=== PATIENT | male | born 1965 | race African-American/Black ===

== ENCOUNTER 2017-03-21 17:36 | Inpatient (IN) | payer OTHER, MEDICARE ==
[2017-03-21] MEDS: ASPIRIN CHEWABLE 81 MG TABLET. PO (17:45)
[2017-03-21 18:28] LABS: ADD MAN DIFF? NO
[2017-03-21 18:33] LABS: BASO % 1 % (0-3); EOS % 1 % (0-3); HEMOGLOBIN 15.7 g/dL (13.0-17.5); LYMPH # 1.8 x10^3/uL (1.0-4.8); LYMPH % 52 % (24-48); MEAN CORPUSCULAR HEMOGLOBIN 29 pg (25-35); MEAN CORPUSCULAR HGB CONC 33 g/dL (31-37); MEAN CORPUSCULAR VOLUME 85 fL (79-100); MONO # 0.3 x10^3/uL (0.0-1.1); MONO % 8 % (0-9); NEUT # 1.4 x10^3uL (1.8-7.7); NEUT % 39 % (31-73); PLATELET COUNT 312 x10^3/uL (140-400); RED CELL DISTRIBUTION WIDTH 16.5 % (11.5-14.5); WHITE BLOOD COUNT 3.6 x10^3/uL (4.0-11.0)
[2017-03-21 18:54] LABS: ANION GAP 10 (6-14); BLOOD UREA NITROGEN 13 mg/dL (8-26); BUN/CREATININE RATIO 11 (6-20); CARBON DIOXIDE 28 mmol/L (21-32); CHLORIDE 105 mmol/L (98-107); CREATININE 1.2 mg/dL (0.7-1.3); GFR 76.6; GLUCOSE 106 mg/dL (70-99); POTASSIUM 4.2 mmol/L (3.5-5.1); SODIUM 143 mmol/L (136-145)
[2017-03-21 19:07] LABS: ALBUMIN 3.9 g/dL (3.4-5.0); ALBUMIN/GLOBULIN RATIO 0.8 (1.0-1.7); ALK PHOS 60 U/L (46-116); ALT (SGPT) 24 U/L (16-63); AST (SGOT) 26 U/L (15-37); TOTAL BILIRUBIN 0.4 mg/dL (0.2-1.0); TOTAL PROTEIN 8.8 g/dL (6.4-8.2)
[2017-03-21 19:14] LABS: TROPONINI < 0.017 ng/mL (0.000-0.055)
[2017-03-21] MEDS ORDERED: NITROGLYCERIN SUBLINGUAL 0.4 MG BOTTLE OF 25. SL (19:30)
[2017-03-21] MEDS ORDERED: MORPHINE SULFATE 2 MG/ML DISP.SYRIN. IV (19:30)
[2017-03-21] MEDS ORDERED: ONDANSETRON PF 4 MG/2 ML VIAL. IV (19:30)
[2017-03-21] MEDS ORDERED: ACETAMINOPHEN 325 MG TABLET. PO (19:30)
[2017-03-22 01:54] LABS: TROPONINI < 0.017 ng/mL (0.000-0.055)
[2017-03-22] MEDS: FAMOTIDINE 20 MG TABLET. PO ×2 (05:17→09:06)
[2017-03-22] MEDS: IBUPROFEN 800 MG TABLET. PO ×3 (05:17→09:06)
[2017-03-22 07:53] LABS: TROPONINI < 0.017 ng/mL (0.000-0.055)
[2017-03-22 09:33] LABS: CHOLESTEROL 202 mg/dL (0-200); HDLC 84 mg/dL (40-60); LDLC 101 mg/dL (0-100); NON-HDL CHOLESTEROL 118 mg/dL (0-129); TRIGLYCERIDES 87 mg/dL (0-150); VLDLC 17 mg/dL (0-40)
[2017-03-22 09:34] LABS: CHOLESTEROL/HDL RATIO 2.4
[2017-03-22] MEDS: LOSARTAN POTASSIUM 50 MG TABLET. PO (11:07)
[2017-03-22] MEDS: hydroCHLOROthiazide 12.5 MG CAPSULE PO (11:07)
[2017-03-22] MEDS: oxyCODONE IR 5 MG TABLET PO (11:07)
== END 2017-03-22 17:15 | disposition home or self-care (01) | DRG 313 ==
LOC: ER 17:36 → 2 NORTH 18:30
DX: R07.89 Other chest pain (principal); F10.129 Alcohol abuse with intoxication, unspecified; F12.90 Cannabis use, unspecified, uncomplicated; F17.210 Nicotine dependence, cigarettes, uncomplicated; I10 Essential (primary) hypertension; K21.9 Gastro-esophageal reflux disease without esophagitis; V89.2XXA Person injured in unspecified motor-vehicle accident, traffic, initial encounter; Y93.89 Activity, other specified; Y92.488 Other paved roadways as the place of occurrence of the external cause; Y99.8 Other external cause status; Z82.49 Family history of ischemic heart disease and other diseases of the circulatory system; Z88.8 Allergy status to other drugs, medicaments and biological substances
CPT/HCPCS: 36415; 71045; 71110; 80053; 80061; 84484; 85025; 93005; 93306; 99285; 99285-25

== ENCOUNTER 2021-06-05 06:47 | Emergency (ER) | payer OTHER ==
[~2021-06-05] VITALS: Ht 170.2 cm; Wt 83.6 kg
[~2021-06-05 06:47] MED LIST: IBUP-1027 PO; LOSA1TAB19 PO
[2021-06-05] MEDS ORDERED: IV RINGERS,LACTATED 500ML 500 ML IV ONE (07:30)
[2021-06-05] MEDS ORDERED: KETOROLAC 15 MG/ML VIAL. IVP ONE (07:45)
--- NOTE | 2021-06-05 07:55 | ED.ADGEN ---
Past Medical History Past Medical History: Hypertension Past Surgical History: Other Additional Past Surgical Histo: plastic surgery for wound repair Smoking Status: Current Every Day Smoker Alcohol Use: Heavy Drug Use: Marijuana General Adult EDM: Chief Complaint: RIB PAIN HPI: HPI: Patient is a 55 year old male coming in via EMS for left flank and rib pain. Patient was moving self in a garage after having been up doing crack cocaine last night and fell onto the floor. Patient's complaining of pain mostly in his left ribs. Denies any head injury loss conscious. Denies any bleeding Review of Systems: Review of Systems: All other systems within normal limits except for as noted in the HPI Current Medications: Current Medications Medications (Trade) Dose Ordered Sig/Mahad Start Time Stop Time Status Last Admin Dose Admin Ketorolac Tromethamine (Toradol 15mg Vial) 15 mg 1X ONCE 06/05/21 07:45 06/05/21 07:46 DC 06/05/21 07:55 15 MG Ringer's Solution 1,000 ml @ 75 mls/hr 1X ONCE 06/05/21 08:15 06/05/21 21:34 06/05/21 07:50 75 MLS/HR Allergies: Allergies: Allergies Coded Allergies Type Severity Reaction Last Updated Verified lisinopril Allergy Severe swelling 05/30/13 Yes Physical Exam: PE: Constitutional: Well developed, well nourished, no acute distress, non-toxic appearance. [] HENT: Normocephalic, atraumatic, bilateral external ears normal, nose normal. [ ] Eyes: PERRLA, conjunctiva normal, no discharge. [] Neck: No rigidity, supple, no stridor. [] Cardiovascular: Regular rate and rhythm, brisk cap refill [] Lungs & Thorax: Non labored symmetric respirations, no tachypnea or respiratory distress. Left chest wall [] Abdomen: Soft, nondistended, generalized abdominal Skin: Warm, dry, no erythema, no rash. [] Back: Unremarkable Extremities: No deformities, range of motion grossly intact, no lower extremity edema [] Neurologic: Alert and oriented X 3, no focal deficits noted. [] Psychologic: Affect normal, judgement normal, mood normal. [] Current Patient Data: Labs: Laboratory Tests Test 06/05/21 07:22 06/05/21 07:50 06/05/21 08:18 Urine Collection Type Unknown Urine Color (Auto) Colorless Urine Turbidity Clear Urine pH (Auto) 7.0 (<5.0-8.0) Urine Specific [place] 1.011 (1.000-1.030) Urine Protein (Auto) Negative mg/dL (Negative) Urine Glucose (Auto)(UA) Negative mg/dL (Negative) Urine Ketones (Auto) Negative mg/dL (Negative) Urine Blood (Auto) Negative (Negative) Urine Nitrite Negative (Negative) Urine Bilirubin (Auto) Negative (Negative) Urine Urobilinogen (Auto) Normal mg/dL (Normal) Urine Leukocyte Esterase (Auto) Negative (Negative) Urine RBC 0 /HPF (0-2) Urine WBC 0 /HPF (0-4) Urine Bacteria 0 /HPF (0-FEW) White Blood Count 4.2 x10^3/uL (4.0-11.0) Red Blood Count 4.73 x10^6/uL (4.30-5.70) Hemoglobin 13.6 g/dL (13.0-17.5) Hematocrit 40.5 % (39.0-53.0) Mean Corpuscular Volume 86 fL (79-100) Mean Corpuscular Hemoglobin 29 pg (25-35) Mean Corpuscular Hemoglobin Concent 34 g/dL (31-37) Red Cell Distribution Width 16.2 % (11.5-14.5) H Platelet Count 292 x10^3/uL (140-400) Neutrophils (%) (Auto) 52 % (31-73) Lymphocytes (%) (Auto) 30 % (24-48) Monocytes (%) (Auto) 11 % (0-9) H Eosinophils (%) (Auto) 7 % (0-3) H Basophils (%) (Auto) 1 % (0-3) Neutrophils # (Auto) 2.2 x10^3/uL (1.8-7.7) Lymphocytes # (Auto) 1.3 x10^3/uL (1.0-4.8) Monocytes # (Auto) 0.4 x10^3/uL (0.0-1.1) Eosinophils # (Auto) 0.3 x10^3/uL (0.0-0.7) Basophils # (Auto) 0.0 x10^3/uL (0.0-0.2) Sodium Level 141 mmol/L (136-145) Potassium Level 4.2 mmol/L (3.5-5.1) Chloride Level 107 mmol/L (98-107) Carbon Dioxide Level 24 mmol/L (21-32) Anion Gap 10 (6-14) Blood Urea Nitrogen 14 mg/dL (8-26) Creatinine 1.0 mg/dL (0.7-1.3) Estimated GFR (Cockcroft-Gault) 93.2 BUN/Creatinine Ratio 14 (6-20) Glucose Level 92 mg/dL (70-99) Calcium Level 8.9 mg/dL (8.5-10.1) Total Bilirubin 0.3 mg/dL (0.2-1.0) Aspartate Amino Transferase (AST) 19 U/L (15-37) Alanine Aminotransferase (ALT) 21 U/L (16-63) Alkaline Phosphatase 61 U/L (46-116) Total Protein 7.2 g/dL (6.4-8.2) Albumin 3.5 g/dL (3.4-5.0) Albumin/Globulin Ratio 0.9 (1.0-1.7) L Lipase 140 U/L (73-393) Ethyl Alcohol Level 46 mg/dL (0-10) H Urine Opiates Screen Neg (NEG) Urine Methadone Screen Neg (NEG) Urine Barbiturates Neg (NEG) Urine Phencyclidine Screen Pos (NEG) Urine Amphetamine/Methamphetamine Neg (NEG) Urine Benzodiazepines Screen Neg (NEG) Urine Cocaine Screen Pos (NEG) Urine Cannabinoids Screen Neg (NEG) Urine Ethyl Alcohol Pos (NEG) Laboratory Tests 06/05/21 07:50 Laboratory Tests 06/05/21 07:50 Vital Signs: Vital Signs Date Time Temp Pulse Resp B/P (MAP) Pulse Ox O2 Delivery O2 Flow Rate FiO2 06/05/21 06:55 98.9 73 16 158/62 (94) 98 98.9 EKG: EKG: [] Heart Score: C/O Chest Pain: No Risk Factors: Risk Factors: DM, Current or recent (<one month) smoker, HTN, HLP, family history of CAD, obesity. Risk Scores: Score 0 - 3: 2.5% MACE over next 6 weeks - Discharge Home Score 4 - 6: 20.3% MACE over next 6 weeks - Admit for Clinical Observation Score 7 - 10: 72.7% MACE over next 6 weeks - Early Invasive Strategies Radiology/Procedures: Radiology/Procedures: [][facility] [address] [place] [address] IMAGING REPORT Signed PATIENT: AFIA MARTINEZ ACCOUNT: [id number] : 1965 LOCATION: ER AGE: 55 SEX: M EXAM STATUS: PRE ER ORD. PHYSICIAN: OVIDIO ANGELES MD REASON: fall, left flank and abd pain PROCEDURE: CT HEAD AND CERVICAL SPINE WO PQRS Compliance Statement: One or more of the following individualized dose reduction techniques were utilized for this examination: 1. Automated exposure control 2. Adjustment of the mA and/or kV according to patient size 3. Use of iterative reconstruction technique CT HEAD AND CERVICAL SPINE WITHOUT CONTRAST History: Reason: fall, left flank and abd pain / Spl. Instructions: / History: Comparison: CT head and cervical spine without contrast July 27, 2012. Procedure: Axial images are obtained of the head from the skull base through the vertex without IV contrast. Noncontrast helical CT of the cervical spine was performed. Axial, sagittal, and coronal reconstructions were obtained. Findings: The ventricles and sulci are prominent, consistent with generalized cerebral atrophy. There is mild periventricular white matter hypoattenuation. This is a nonspecific finding but is commonly due to chronic small vessel ischemic disease in a patient of this age. No mass-effect, midline shift, hemorrhage or obvious acute infarction is identified. Basilar cisterns are patent. Bone windows demonstrate no significant calvarial abnormality. There is mucosal thickening of the bilateral ethmoid and maxillary sinuses. There is no air-fluid level. Mastoid air cells are well aerated. There is no evidence of acute fracture or acute malalignment of the cervical spine. The facet joints are hypertrophic. There is mild grade 1 anterolisthesis of C4 on C5 and C7 on T1. The alignment is otherwise maintained. There is disc space narrowing and reactive endplate changes of C5/C6 and C6/C7 and C7/T1. There is neural foraminal narrowing of C5/C6 and C6/C7 mainly due to uncinate process hypertrophy. The thyroid gland is prominent. The visualized lung apices are clear. IMPRESSION: 1. No acute intracranial abnormality. 2. No acute fracture of the cervical spine. Electronically signed by: Og Lynne MD (06/05/2021 8:38 AM) [id number] DICTATED and SIGNED BY: OG LYNNE MD DATE: 06/05/21829 [facility] [address] [place] [address] IMAGING REPORT Signed PATIENT: AFIA MARTINEZ ACCOUNT: [id number] : 1965 LOCATION: ER AGE: 55 SEX: M EXAM STATUS: REG ER ORD. PHYSICIAN: OVIDIO ANGELES MD REASON: fall, left flank and abd pain PROCEDURE: CT CHEST ABDOMEN PELVIS WO PQRS Compliance Statement: One or more of the following individualized dose reduction techniques were utilized for this examination: 1. Automated exposure control 2. Adjustment of the mA and/or kV according to patient size 3. Use of iterative reconstruction technique CT CHEST_ABDOMEN_ AND PELVIS WITHOUT CONTRAST Clinical Indication: Reason: fall, left flank and abd pain / Spl. Instructions: / History: Comparison: None. Technique: Helical CT imaging of the chest, abdomen and pelvis is performed without IV or oral contrast. Findings: In the setting of trauma, sensitivity for detection of pathology is significantly decreased without IV contrast. No acute mediastinal hematoma is identified. 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 There is coronary artery disease. The cardiac size is normal, no pericardial effusion. There is small hiatal hernia. There is no pneumothorax. There is bilateral dependent atelectasis, greater on the left. The central airways are patent. There is no acute traumatic solid organ injury in the upper abdomen. Small left parapelvic cyst does not require follow-up. There is no hydronephrosis. There is no intraperitoneal free air or free fluid. No acute injury of bowel is seen. There is no obstruction. The urinary bladder is intact. There are multiple old left lateral rib fractures. The thoracic spine alignment is maintained. There is grade 1 anterolisthesis of L4 on L5. There is disc space narrowing and vacuum disc phenomenon of L4/L5. There are reactive endplate changes of L5/S1. No acute pelvic fracture. No acute fracture of the thoracolumbar spine is seen. IMPRESSION: 1. No acute traumatic injury is identified in the chest, abdomen, or pelvis with noncontrast CT. 2. Incidental findings as above. Electronically signed by: Og Lynne MD (06/05/2021 8:58 AM) [id number] DICTATED and SIGNED BY: OG LYNNE MD DATE: 06/05/21 0838 Course & Med Decision Making: Course & Med Decision Making Pertinent Labs and Imaging studies reviewed. (See chart for details) [] Dragon Disclaimer: Dragon Disclaimer: This electronic medical record was generated, in whole or in part, using a voice recognition dictation system. Departure Departure Impression: Primary Impression: Fall Additional Impression: Rib pain on left side Disposition: 01 HOME / SELF CARE / HOMELESS Condition: STABLE Referrals: UNKNOWN PCP NAME (PCP) Patient Instructions: Rib Contusion Additional Instructions: Use Tylenol, ibuprofen, and ice packs as needed for rib pain. Problem Qualifiers OVIDIO ANGELES MD Jun 05, 2021 07:55
[2021-06-05 08:14] LABS: BASO % 1 % (0-3); EOS # 0.3 x10^3/uL (0.0-0.7); EOS % 7 % (0-3); HEMATOCRIT 40.5 % (39.0-53.0); HEMOGLOBIN 13.6 g/dL (13.0-17.5); LYMPH # 1.3 x10^3/uL (1.0-4.8); LYMPH % 30 % (24-48); MEAN CORPUSCULAR HEMOGLOBIN 29 pg (25-35); MEAN CORPUSCULAR HGB CONC 34 g/dL (31-37); MEAN CORPUSCULAR VOLUME 86 fL (79-100); MONO # 0.4 x10^3/uL (0.0-1.1); MONO % 11 % (0-9); NEUT # 2.2 x10^3/uL (1.8-7.7); NEUT % 52 % (31-73); PLATELET COUNT 292 x10^3/uL (140-400); RED BLOOD COUNT 4.73 x10^6/uL (4.30-5.70); RED CELL DISTRIBUTION WIDTH 16.2 % (11.5-14.5); WHITE BLOOD COUNT 4.2 x10^3/uL (4.0-11.0)
[2021-06-05] MEDS ORDERED: IV RINGERS,LACTATED 1000ML 1,000 ML IV ONE (08:15)
[2021-06-05 08:21] LABS: CALCIUM 8.9 mg/dL (8.5-10.1); GFR 93.2; POTASSIUM 4.2 mmol/L (3.5-5.1)
[2021-06-05 08:26] LABS: ALBUMIN 3.5 g/dL (3.4-5.0); ALBUMIN/GLOBULIN RATIO 0.9 (1.0-1.7); TOTAL BILIRUBIN 0.3 mg/dL (0.2-1.0); TOTAL PROTEIN 7.2 g/dL (6.4-8.2)
[2021-06-05 08:29] LABS: BACTERIA,URINE 0 /HPF (0-FEW); RBC,URINE 0 /HPF (0-2); WBC,URINE 0 /HPF (0-4)
[2021-06-05 08:33] LABS: BARBITURATES NEG (NEG); BENZODIAZEPINES NEG (NEG); CANNABINOIDS NEG (NEG); COCAINE POS (NEG); METHADONE NEG (NEG); OPIATES NEG (NEG); PHENCYCLIDINE POS (NEG)
[2021-06-05 08:35] LABS: AMPHETAMINE/METHAMPHETAMINE NEG (NEG)
--- NOTE | 2021-06-05 08:40 | RAD ---
PQRS Compliance Statement: One or more of the following individualized dose reduction techniques were utilized for this examinat ion: 1. Automated exposure control 2. Adjustment of the mA and/or kV according to patient size 3. Use of iterative reconstruction technique CT HEAD AND CERVICAL SPINE WITHOUT CONTRAST History: Reason: fall, left flank and abd pain / Spl. Instructions: / History: Comparison: CT head and cervical spine without contrast July 27, 2012. Procedure: Axial images are obtained of the head from the skull base through the vertex without IV co ntrast. Noncontrast helical CT of the cervical spine was performed. Axial, sagittal, and coronal rec onstructions were obtained. Findings: The ventricles and sulci are prominent, consistent with generalized cerebral atrophy. There is mild periventricular white matter hypoattenuation. This is a nonspecific finding but is commonly due to c hronic small vessel ischemic disease in a patient of this age. No mass-effect, midline shift, hemorrhage or obvious acute infarction is identified. Basilar cistern s are patent. Bone windows demonstrate no significant calvarial abnormality. There is mucosal thickening of the bilateral ethmoid and maxillary sinuses. There is no air-fluid lev el. Mastoid air cells are well aerated. There is no evidence of acute fracture or acute malalignment of the cervical spine. The facet joints are hypertrophic. There is mild grade 1 anterolisthesis of C4 on C5 and C7 on T1. Th e alignment is otherwise maintained. There is disc space narrowing and reactive endplate changes of C 5/C6 and C6/C7 and C7/T1. There is neural foraminal narrowing of C5/C6 and C6/C7 mainly due to uncina te process hypertrophy. The thyroid gland is prominent. The visualized lung apices are clear. IMPRESSION: 1. No acute intracranial abnormality. 2. No acute fracture of the cervical spine. Electronically signed by: Og Lynne MD (06/05/2021 8:38 AM) [id number]
--- NOTE | 2021-06-05 09:00 | RAD ---
PQRS Compliance Statement: One or more of the following individualized dose reduction techniques were utilized for this examinat ion: 1. Automated exposure control 2. Adjustment of the mA and/or kV according to patient size 3. Use of iterative reconstruction technique CT CHEST_ABDOMEN_ AND PELVIS WITHOUT CONTRAST Clinical Indication: Reason: fall, left flank and abd pain / Spl. Instructions: / History: Comparison: None. Technique: Helical CT imaging of the chest, abdomen and pelvis is performed without IV or oral contra st. Findings: In the setting of trauma, sensitivity for detection of pathology is significantly decreased without I V contrast. No acute mediastinal hematoma is identified. There is borderline aneurysm of the ascending thoracic a ciro, diameter is 4.3 cm. There is coronary artery disease. The cardiac size is normal, no pericardia l effusion. There is small hiatal hernia. There is no pneumothorax. There is bilateral dependent atelectasis, greater on the left. The central airways are patent. There is no acute traumatic solid organ injury in the upper abdomen. Small left parapelvic cyst does not require follow-up. There is no hydronephrosis. There is no intraperitoneal free air or free fluid. No acute injury of bowel is seen. There is no obs truction. The urinary bladder is intact. There are multiple old left lateral rib fractures. The thoracic spine alignment is maintained. There is grade 1 anterolisthesis of L4 on L5. There is disc space narrowing and vacuum disc phenomenon of L 4/L5. There are reactive endplate changes of L5/S1. No acute pelvic fracture. No acute fracture of th e thoracolumbar spine is seen. IMPRESSION: 1. No acute traumatic injury is identified in the chest, abdomen, or pelvis with noncontrast CT. 2. Incidental findings as above. Electronically signed by: Og Lynne MD (06/05/2021 8:58 AM) [id number]
[2021-06-05 09:33] VITALS: BP 181/96
[2021-06-05] MEDS ORDERED: IBUP-1060 PO (09:38)
== END 2021-06-05 09:53 | disposition home or self-care (01) ==
LOC: ER 06:47
DX: R07.89 Other chest pain (principal); G89.11 Acute pain due to trauma; M54.2 Cervicalgia; R51.9 Headache, unspecified; R10.9 Unspecified abdominal pain; I10 Essential (primary) hypertension; F17.200 Nicotine dependence, unspecified, uncomplicated; F10.20 Alcohol dependence, uncomplicated; Y90.9 Presence of alcohol in blood, level not specified; Z88.6 Allergy status to analgesic agent; W18.39XA Other fall on same level, initial encounter; Y93.89 Activity, other specified; Y92.89 Other specified places as the place of occurrence of the external cause; Y99.8 Other external cause status
CPT/HCPCS: 36415; 70450; 71250; 72125; 74176; 80053; 80307; 81001; 83690; 85025; 96361; 96374; 99285; G0480; J1885; J7120